=== PATIENT | male | born 1990 | race Caucasian/White ===

== ENCOUNTER 2024-01-31 14:29 | Emergency (ER) | payer SELFPAY ==
[2024-01-31 14:57] LABS: Absolute Basophils 0.1 K/uL (0-0.5); Absolute Eosinophils 0.2 K/uL (0-0.5); Absolute Lymphocytes (CBC) 1.9 K/uL (0.7-4.9); Absolute Monocytes 0.5 K/uL (0.1-1.3); Basophils % 0.7 % (0-1.3); Hematocrit 44.7 % (39.6-49.0); Hemoglobin 15.3 g/dL (13.6-17.9); Lymphocytes % 25.4 % (15.3-44.8); MCH 28.9 pg (27.0-35.0); MCHC 34.2 g/dL (32.0-36.0); MCV 84.6 fL (80-100); MPV 8.8 fL (7.6-11.3); Monocytes % 6.1 % (3.3-12.3); Neutrophils % 65.8 % (41.7-73.7); Platelets 259 thou/uL (152-406); RBC Red Blood Cell Count 5.28 M/uL (4.33-5.43); Red Cell Distribution Width 12.7 % (12.1-15.2)
[2024-01-31 15:22] LABS: ALT/SGPT 108 U/L (16-61); Albumin 3.8 g/dL (3.4-5.0); Alkaline Phosphatase 86 U/L (45-117); Anion Gap 9.3 mEq/L (5.0-15.0); BUN Blood Urea Nitrogen 13 mg/dL (7-18); Bicarbonate 26 mEq/L (21-32); Bilirubin Total 0.4 mg/dL (0.2-1.0); Globulin 3.8 g/dL (2.3-3.5); Glomerular Filtration Rate 88 ml/min (=/>90); Glucose Level 374 mg/dL (74-106); NT PRO-BNP 10 pg/mL (<125); Protein, Total 7.6 g/dL (6.4-8.2); Sodium Level 134 mEq/L (136-145); Troponin High Sensitivity 3.5 pg/mL (<58.9)
[2024-01-31 15:23] LABS: AST/SGOT 66 U/L (15-37); Bilirubin Direct < 0.2 mg/dL (0-0.2); Bilirubin Indirect, Calculated 0.2 mg/dL (0.2-0.8); Magnesium 1.8 mg/dL (1.6-2.4); Potassium 4.3 mEq/L (3.5-5.1)
--- NOTE | 2024-01-31 15:35 | EDPHYS ---
Physician Documentation [facility] Name: Ciaran Childers Age: 33 yrs Sex: Male : 1990 Arrival Date: 01/31/2024 Time: 14:29 Bed 20 Private MD: ED Physician Caroline Ramos HPI: 01/30 14:47 This 33 yrs old Male presents to ER via Ambulatory with complaints of Chest Tightness, sp3 Arm Problem. 14:47 33-year-old male with a history of diabetes diet-controlled, obesity now presents to 3 the ED with chief complaint of off-and-on chest tightness episodes for the last several months with last episode occurring last night. He denies ongoing symptoms, fever, headache, neck pain, shortness of breath, abdominal pain, nausea, vomiting, diarrhea, syncope, near syncope, focal neurological deficit, rash, prolonged immobilization, recent travel, known sick contacts, or any other signs or symptoms on ROS at this time.. Historical: - Allergies: 14:43 NKA; cm10 - Home Meds: 14:43 None [Active]; cm10 - PMHx: 14:43 diabetes mellitus; cm10 - PSHx: 14:43 None; cm10 - Immunization history:: Adult Immunizations up to date. - Infectious Disease History:: Denies. - Social history:: Smoking status: Patient denies any tobacco usage or history of. ROS: 14:49 Constitutional: Negative for fever, chills, and weight loss, Eyes: Negative for injury, sp3 pain, redness, and discharge, Neck: Negative for injury, pain, and swelling, Abdomen/GI: Negative for abdominal pain, nausea, vomiting, diarrhea, and constipation, Back: Negative for injury and pain, : Negative for injury, bleeding, discharge, and swelling, MS/Extremity: Negative for injury and deformity, Skin: Negative for injury, rash, and discoloration, Neuro: Negative for headache, weakness, numbness, tingling, and seizure, Psych: Negative for depression, anxiety, suicide ideation, homicidal ideation, and hallucinations, Allergy/Immunology: Negative for hives, rash, and allergies, Endocrine: Negative for neck swelling, polydipsia, polyuria, polyphagia, and marked weight changes, Hematologic/Lymphatic: Negative for swollen nodes, abnormal bleeding, and unusual bruising, 14:49 All other systems are negative, Exam: 14:49 Constitutional: This is a well developed, well nourished patient who is awake, alert, sp3 and in no acute distress. Head/Face: Normocephalic, atraumatic. Eyes: Pupils equal round and reactive to light, extra-ocular motions intact. Lids and lashes normal. Conjunctiva and sclera are non-icteric and not injected. Cornea within normal limits. Periorbital areas with no swelling, redness, or edema. ENT: Nares patent. No nasal discharge, no septal abnormalities noted. External auditory canals are clear. Oropharynx with no redness, swelling, or masses, exudates, or evidence of obstruction, uvula midline. Mucous membranes moist. Neck: Trachea midline, no thyromegaly or masses palpated, and no cervical lymphadenopathy. Supple, full range of motion without nuchal rigidity, or vertebral point tenderness. No Meningismus. Chest/axilla: Normal chest wall appearance and motion. Nontender with no deformity. No lesions are appreciated. Cardiovascular: Regular rate and rhythm with a normal S1 and S2. No gallops, murmurs, or rubs. Normal PMI, no JVD. No pulse deficits. Respiratory: Lungs have equal breath sounds bilaterally, clear to auscultation and percussion. No rales, rhonchi or wheezes noted. No increased work of breathing, no retractions or nasal flaring. Abdomen/GI: Soft, non-tender, with normal bowel sounds. No distension or tympany. No guarding or rebound. No evidence of tenderness throughout. Back: No spinal tenderness. No costovertebral tenderness. Full range of motion. Skin: Warm, dry with normal turgor. Normal color with no rashes, no lesions, and no evidence of cellulitis. MS/ Extremity: Pulses equal, no cyanosis. Neurovascular intact. Full, normal range of motion. Neuro: Awake and alert, GCS 15, oriented to person, place, time, and situation. Cranial nerves II-XII grossly intact. Motor strength 5/5 in all extremities. Sensory grossly intact. Cerebellar exam normal. Normal gait. Psych: Awake, alert, with orientation to person, place and time. Behavior, mood, and affect are within normal limits. 14:49 ECG was reviewed by the Attending Physician. EKG demonstrates normal sinus rhythm at 83 bpm with normal intervals, normal QRS, normal axis, nonspecific diffuse ST/T changes without evidence of acute ischemia. Vital Signs: 14:41 BP 156 / 93; Pulse 88; Resp 18; Temp 97.3; Pulse Ox 96% on R/A; Weight 141.52 kg; cm10 Height 6 ft. 2 in. ; Pain 0/10; 15:00 BP 126 / 79; Pulse 86; Resp 18; Pulse Ox 95% on R/A; db 14:41 Body Mass Index 40.06 (141.52 kg, 187.96 cm) cm10 14:41 Pain Scale: Adult cm10 MDM: 14:35 Patient medically screened. sp3 14:50 Data reviewed: vital signs, nurses notes, lab test result(s), EKG, radiologic studies. sp3 ED course: 33-year-old male with PMH above now with resolved chest tightness episode with other episodes in the recent past. 1 set of cardiac markers to rule out any significant cardiac injury. Differential diagnosis includes acute coronary syndrome, musculoskeletal pain, GI issue, among others. I am not highly suspicious for DVT/PE spectrum, pneumonia or anything infectious including sepsis. Will obtain EKG, chest x-ray and laboratory values including troponin. If workup negative, we will safely discharge patient home to cardiology outpatient follow-up for treadmill stress test.. 15:33 ED course: Workup negative. Patient is still hyperglycemic. I will start him on sp3 metformin and he can follow-up with his PCP on starting a diabetes regimen plan. Also follow-up with cardiology outpatient for outpatient cardiac stress test.. 01/30 14:46 Order name: Basic Metabolic Panel; Complete Time: 15:31 sp3 01/30 14:46 Order name: CBC with Diff; Complete Time: 15:31 sp3 01/30 14:46 Order name: LFT's; Complete Time: 15:31 sp3 01/30 14:46 Order name: Magnesium; Complete Time: 15:31 sp3 01/30 14:46 Order name: NT PRO-BNP; Complete Time: 15:31 sp3 01/30 14:46 Order name: Troponin HS; Complete Time: 15:31 sp3 01/30 14:32 Order name: XRAY Chest (1 view) sp3 01/30 14:32 Order name: EKG; Complete Time: 14:32 sp3 01/30 14:32 Order name: EKG - Nurse/Tech; Complete Time: 14:41 sp3 01/30 14:46 Order name: Cardiac monitoring; Complete Time: 14:50 sp3 01/30 14:46 Order name: IV Saline Lock; Complete Time: 14:50 sp3 01/30 14:46 Order name: Labs collected and sent; Complete Time: 14:50 sp3 01/30 14:46 Order name: O2 Sat Monitoring; Complete Time: 14:50 sp3 Administered Medications: No medications were administered Disposition Summary: 01/31/24 15:34 Discharge Ordered Notes: Location: Home sp3 Condition: Stable sp3 Diagnosis - Chest pain, hyperglycemia sp3 Followup: sp3 - With: Private Physician - When: Upon discharge from the Emergency Department - Reason: Continuance of care Followup: sp3 - With: Destin Banegas MD - When: Upon discharge from the Emergency Department - Reason: Recheck today's complaints Discharge Instructions: - Discharge Summary Sheet sp3 - Nonspecific Chest Pain, Adult sp3 - Hyperglycemia sp3 Forms: - Medication Reconciliation Form sp3 - Antibiotic Education sp3 - Prescription Opioid Use sp3 - Patient Portal Instructions sp3 - Leadership Thank You Letter sp3 Prescriptions: - Metformin 500 mg Oral Tablet Sustained Release 24 hr - take 1 tablet ORAL route once daily with evening meal; 20 tablet; Refills: 0, sp3 Product Selection Permitted Signatures: Dispatcher [employer] Caroline Prasad MD MD sp3 Lisandra Juarez, RN RN cm10
--- NOTE | 2024-01-31 15:35 | ER ---
Nurse's Notes [facility] Name: Ciaran Childers Age: 33 yrs Sex: Male : 1990 Arrival Date: 01/31/2024 Time: 14:29 Bed 20 Private MD: Diagnosis: Chest pain, hyperglycemia Presentation: 01/30 14:41 Chief complaint: Patient states: Intermittent chest tightness onset yesterday. Pt also cm10 reports tingling to left arm and fingertips that is also intermittent. Coronavirus screen: Client denies travel out of the [place] in the last 14 days. At this time, the client does not indicate any symptoms associated with coronavirus-19. Ebola Screen: Patient denies travel to an Ebola-affected area in the 21 days before illness onset. No symptoms or risks identified at this time. Initial Sepsis Screen: Does the patient meet any 2 criteria? No. Patient's initial sepsis screen is negative. Does the patient have a suspected source of infection? No. Patient's initial sepsis screen is negative. Risk Assessment: Do you want to hurt yourself or someone else? Patient reports no desire to harm self or others. Onset of symptoms was January 31, 2024. 14:41 Method Of Arrival: Ambulatory cm10 14:41 Acuity: AMANDA 2 cm10 Triage Assessment: 14:43 General: Appears in no apparent distress. comfortable, Behavior is calm, cooperative. cm10 Neuro: No deficits noted. Level of Consciousness is awake, alert, obeys commands, Oriented to person, place, time, situation, Appropriate for age. Historical: - Allergies: 14:43 NKA; cm10 - Home Meds: 14:43 None [Active]; cm10 - PMHx: 14:43 diabetes mellitus; cm10 - PSHx: 14:43 None; cm10 - Immunization history:: Adult Immunizations up to date. - Infectious Disease History:: Denies. - Social history:: Smoking status: Patient denies any tobacco usage or history of. Screenin:02 [facility] ED Fall Risk Assessment (Adult) History of falling in the last 3 months, db including since admission No falls in past 3 months (0 pts) Confusion or Disorientation No (0 pts) Intoxicated or Sedated No (0 pts) Impaired Gait No (0 pts) Mobility Assist Device Used No (0 pt) Altered Elimination No (0 pt) Score/Fall Risk Level 0 - 2 = Low Risk Oriented to surroundings, Maintained a safe environment. Abuse screen: Denies threats or abuse. Denies injuries from another. Nutritional screening: No deficits noted. Tuberculosis screening: No symptoms or risk factors identified. Assessment: 15:00 Reassessment: Patient appears in no apparent distress at this time. Patient and/or db family updated on plan of care and expected duration. Pain level reassessed. Patient is alert, oriented x 3, equal unlabored respirations, skin warm/dry/pink. General: Appears in no apparent distress. comfortable, Behavior is calm, cooperative. Pain: Complains of pain in chest Pain radiates to right arm Pain began gradually. Neuro: Level of Consciousness is awake, alert, obeys commands, Oriented to person, place, time, situation. Cardiovascular: Reports chest pain, Capillary refill < 3 seconds Patient's skin is warm and dry. Respiratory: Reports pain with movement Airway is patent Respiratory effort is even, unlabored, Respiratory pattern is regular, symmetrical. 15:55 Reassessment: Patient appears in no apparent distress at this time. Patient and/or db family updated on plan of care and expected duration. Pain level reassessed. Patient is alert, oriented x 3, equal unlabored respirations, skin warm/dry/pink. Reassessment: Patient states feeling better. Patient states symptoms have improved. General: Appears in no apparent distress. comfortable, Behavior is calm, cooperative. Vital Signs: 14:41 BP 156 / 93; Pulse 88; Resp 18; Temp 97.3; Pulse Ox 96% on R/A; Weight 141.52 kg; cm10 Height 6 ft. 2 in. ; Pain 0/10; 15:00 BP 126 / 79; Pulse 86; Resp 18; Pulse Ox 95% on R/A; db 14:41 Body Mass Index 40.06 (141.52 kg, 187.96 cm) cm10 14:41 Pain Scale: Adult cm10 ED Course: 14:30 Patient arrived in ED. im 14:31 Caroline Ramos MD is Attending Physician. sp3 14:41 EKG done, by ED staff, reviewed by Caroline Ramos MD. zm 14:42 Triage completed. cm10 14:43 Arm band placed on Patient placed in an exam room, on a stretcher, on pulse oximetry. cm10 EKG completed in triage. Results shown to MD. 14:49 Anna Deluna, RN is Primary Nurse. db 15:33 Destin Banegas MD is Referral Physician. sp3 15:38 XRAY Chest (1 view) In Process Unspecified. EDMS 15:55 No provider procedures requiring assistance completed. IV discontinued, intact, db bleeding controlled, No redness/swelling at site. Patient maintains SpO2 saturation greater than 95% on room air. 15:55 Patient has correct armband on for positive identification. Side rails up X 1. Provided db Education on: DISCHARGE FOLLOWUP. Client placed on continuous cardiac and pulse oximetry monitoring. NIBP monitoring applied. general education instructor on. Pulse ox on. NIBP on. Warm blanket given. Pillow given. Administered Medications: No medications were administered Medication: 15:55 VIS not applicable for this client. db Outcome: 15:34 Discharge ordered by . sp3 15:55 Discharged to home ambulatory, with family, db 15:55 Condition: stable 15:55 Discharge instructions given to patient, Instructed on discharge instructions, follow up and referral plans. Prescriptions given X 1, 15:58 Patient left the ED. db Signatures: Dispatcher [employer] EDMS Caroline Ramos MD MD sp3 Megan Juarez Danielle, RN RN db Rosaura Bull Clarissa, RN RN cm10
[2024-01-31 16:05] VITALS: TEMP 97.3
--- NOTE | 2024-01-31 16:05 | RAD REPORT ---
EXAM DESCRIPTION: Lindsay Single View01/31/2024 3:36 pm CLINICAL HISTORY: Chest pain COMPARISON: 2022 FINDINGS: The lungs appear clear of acute infiltrate. The heart may be borderline enlarged IMPRESSION: No acute abnormalities displayed
[2024-01-31 16:06] VITALS: BP 126/79; O2SAT 95
--- NOTE | 2024-02-01 16:56 | EKG ---
Test Date: 2024-01-31 Test Time: 14:37:32 Die Cutting Machine Operator: LITO MEASUREMENT RESULTS: Intervals: Rate: 83 MD: 182 QRSD: 84 QT: 376 QTc: 441 Ethel: P: 60 MD: 182 QRS: 111 T: 52 INTERPRETIVE STATEMENTS: Normal sinus rhythm Left posterior fascicular block Abnormal ECG Compared to ECG 02/24/2022 08:31:20 Left posterior fascicular block now present Right-axis deviation no longer present Myocardial infarct finding no longer present Electronically Signed On 02-01-24 16:53:02 CDT by Destin Banegas
== END 2024-01-31 15:58 | disposition home or self-care (01) ==
LOC: ER 14:29
DX: R07.9 Chest pain, unspecified (principal); E11.65 Type 2 diabetes mellitus with hyperglycemia
CPT/HCPCS: 36415; 71045; 80048; 80076; 83735; 83880; 84484; 85025; 93005; 99284